=== PATIENT | female | born 1935 | race Caucasian/White ===

== ENCOUNTER 2018-08-26 20:23 | Emergency (ER) | payer MEDICARE, OTHER ==
[2018-08-26] MEDS: IBUPROFEN 200 MG TAB PO (20:39)
[2018-08-26] MEDS: ACETAMINOPHEN 325 MG TAB PO (20:46)
== END 2018-08-26 22:38 | disposition home or self-care (01) ==
LOC: FTE 20:23
DX: S52.571A Other intraarticular fracture of lower end of right radius, initial encounter for closed fracture (principal); I10 Essential (primary) hypertension; E11.9 Type 2 diabetes mellitus without complications; E03.9 Hypothyroidism, unspecified; S52.614A Nondisplaced fracture of right ulna styloid process, initial encounter for closed fracture; W18.39XA Other fall on same level, initial encounter; Y92.9 Unspecified place or not applicable
CPT/HCPCS: 29105; 73110-RT; 99283-25